=== PATIENT | male | born 1970 | race Caucasian/White ===

== ENCOUNTER 2021-08-28 11:20 | Outpatient (CLI) | payer BC, SELFPAY ==
--- NOTE | ~2021-08-28 | XR_ITS ---
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 There i s no prior study for comparison. 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 Some secondary osteoarthritis. Over lying soft tissue swelling. No erosive change. No acute fracture identified. IMPRESSION: Chronic findings left 5th PIP findings. Reviewed, dictated and finalized at location G. [employer] MACHINE [employer]PERATOR
== END 2021-08-28 11:21 | disposition home or self-care (01) ==
LOC: ANHIMG 11:23
PROVIDERS: PCP Physician Assistant; Visit Provider Plastic Surgery
DX: S63.287A Dislocation of proximal interphalangeal joint of left little finger, initial encounter (principal); X58.XXXA Exposure to other specified factors, initial encounter
CPT/HCPCS: 73140